=== PATIENT | male | born 1955 | race Native Hawaiian/Other Pacific Islander ===

== ENCOUNTER 2017-12-27 05:02 | Emergency (ER) | payer OTHER ==
[2017-12-27 05:20] VITALS: RESP 18
--- NOTE | 2017-12-27 05:50 | C.PDOC ---
History Of Present Illness 62 year old male presents to the ER with a complaint of right foot pain for the past 3 days. Patient has a Hx of gout and states the pain feels similar to prior exacerbations. He normally takes colchicine but ran out 5 days ago. Denies falls, injuries, fever, or sensory changes. Time Seen by Provider: 12/27/17 05:13 Chief Complaint (Nursing): Lower Extremity Problem/Injury History Per: Patient History/Exam Limitations: no limitations Onset/Duration Of Symptoms: Days Current Symptoms Are (Timing): Still Present Recent travel outside of the [place]: No Past Medical History Reviewed: Historical Data, Nursing Documentation, Vital Signs Vital Signs: Last Vital Signs Temp 99.6 F 12/27/17 06:20 Pulse 81 12/27/17 06:20 Resp 18 12/27/17 06:20 BP 102/68 12/27/17 06:20 Pulse Ox 95 12/27/17 06:20 - Medical History PMH: Asthma, HTN Surgical History: No Surg Hx Family History: States: Unknown Family Hx - Social History Hx Alcohol Use: Yes Hx Substance Use: No - Immunization History Hx Tetanus Toxoid Vaccination: No Hx Influenza Vaccination: Yes Hx Pneumococcal Vaccination: Yes Review Of Systems Except As Marked, All Systems Reviewed And Found Negative. Musculoskeletal: Positive for: Foot Pain Physical Exam - Physical Exam Appears: Non-toxic, Other (Moderate pain) Skin: Normal Color, Warm, Dry Head: Atraumatic, Normacephalic Eye(s): bilateral: Normal Inspection Oral Mucosa: Moist Chest: Symmetrical, No Tenderness Cardiovascular: Rhythm Regular Respiratory: Normal Breath Sounds, No Rales, No Rhonchi, No Wheezing Extremity: Normal ROM (x4), No Calf Tenderness, Capillary Refill (<2 seconds), Other (Tenderness to palpation of proximal right foot with mild swelling and warm to touch) Pulses: Left Dorsalis Pedis: Normal, Right Dorsalis Pedis: Normal Neurological/Psych: Oriented x3, Normal Speech, Normal Motor, Normal Sensation Gait: Steady ED Course And Treatment O2 Sat by Pulse Oximetry: 97 (room air) Pulse Ox Interpretation: Normal Progress Note: Colchicine and toradol administered. Disposition Counseled Patient/Family Regarding: Diagnosis, Need For Followup, Rx Given - Disposition Referrals: Michael Riggs MD [Staff Provider] - Disposition: HOME/ ROUTINE Disposition Time: 06:00 Condition: STABLE Additional Instructions: FOLLOW UP WITH YOUR DOCTOR IN 1-2 DAYS USE MEDICATIONS NEEDED/DIRECTED RETURN TO ER IF SYMPTOMS WORSEN Prescriptions: Colchicine 0.6 mg PO DAILY #14 capsule Indomethacin [Indocin] 50 mg PO TID PRN #15 cap PRN Reason: PAIN Instructions: Lifestyle Changes to Manage Gout, Gout (DC) Forms: Fetch MD (Belizean) Print Language: FRISIAN - Clinical Impression Clinical Impression: Gout - Scribe Statement The provider has reviewed the documentation as recorded by the Scribradha Yan All medical record entries made by the Luisibradha were at my direction and personally dictated by me. I have reviewed the chart and agree that the record accurately reflects my personal performance of the history, physical exam, medical decision making, and the department course for this patient. I have also personally directed, reviewed, and agree with the discharge instructions and disposition.
[2017-12-27 06:22] VITALS: BP 102/68; PULSE 81; TEMP 99.6
[2017-12-27 06:53] VITALS: O2SAT 97
== END 2017-12-27 06:57 | disposition home or self-care (01) ==
LOC: C.ER 05:02
DX: M10.9 Gout, unspecified (principal)
CPT/HCPCS: 96374; 99284; J1885